=== PATIENT | male | born 1980 | race Caucasian/White ===

== ENCOUNTER → 2017-03-21 | Outpatient (CLI) | payer OTHER ==
[~2017-03-21] MED LIST: CEPH500C PO; IBUP-1050 PO
== END | disposition home or self-care (01) ==
LOC: C.PATHSPEC 18:00
PROVIDERS: ATTEND Urology
DX: Z30.2 Encounter for sterilization (principal)

== ENCOUNTER 2017-04-24 17:58 | Emergency (ER) | payer OTHER ==
[~2017-04-24] VITALS: Ht 185.4 cm; Wt 77.3 kg
[~2017-04-24 17:58] MED LIST changes: -CEPH500C PO
[2017-04-24 18:19] VITALS: TEMP 37.2; Ht 185.4 cm; Wt 77.3 kg
[2017-04-24] MEDS ORDERED: ACETAMINOPHEN 500 MG TAB PO STA (18:40)
[2017-04-24 19:05] LABS: URINE APPEARANCE CLEAR (CLEAR); URINE BILIRUBIN NEG (NEG); URINE COLOR YELLOW; URINE NITRITE NEG (NEG); URINE PH 6.5 (4.5-7.5); URINE SPECIFIC GRAVITY 1.027 (1.000-1.030); UROBILINOGEN NEG (NEG); ZZUR CULT IF INDIC CLEAN CATCH NO
[2017-04-24 19:09] LABS: MANUAL MICROSCOPIC REQUIRED? NO; REVIEW REQ? NO
--- NOTE | 2017-04-24 19:23 | DIAGNOSTIC IMAGING REPORT ---
(TESTICULAR) SCROTUM-CONT CLINICAL HISTORY: 36 years-old Male with Right testicular pain and edema. Vasectomy 03/21/17. Acute right-sided testicular pain and edema. History of recent vascectomy COMPARISON STUDY: CT abdomen and pelvis 06/21/2011 TECHNIQUE: Real-time, grayscale, and color Doppler sonography of the testes and scrotum is performed. Images are reviewed in the transverse and longitudinal planes. FINDINGS: RIGHT HEMISCROTUM: The right testis measures 4.2 x 2.4 x 3.2 cm and the parenchyma appears unremarkable. No intratesticular mass is seen. Normal-appearing arterial inflow is present within the right testicle. The right epididymal head appears heterogenous and hyperemic, 1.6 x 1.4 x 1.2 cm. There is a small complex right hydrocele. LEFT HEMISCROTUM: The left testis measures 5.7 x 2.3 x 3.3 cm and the parenchyma appears unremarkable. No intratesticular mass is seen. Normal-appearing arterial inflow is present within the left testicle. The left epididymal head appears normal measuring 1.0 x 0.8 x 1.2 cm. No varicocele or hydrocele is identified. IMPRESSION: 1. Right epididymitis with small complex right hydrocele suggesting a hematocele or pyocele. 2. Unremarkable sonographic appearance of the testicles without evidence of torsion or mass. The above report was generated using voice recognition software. It may contain grammatical, syntax or spelling errors. Electronically signed by: Aj Owen M.D. 04/24/2017 7:22 PM Dictated Date/Time: 04/24/2017 7:17 PM
[2017-04-24] MEDS ORDERED: CEPHALEXIN 500MG HOME PACK 1 EA BTL PO STA (20:15)
[2017-04-24] MEDS ORDERED: CEPH500C PO (20:27)
--- NOTE | 2017-04-24 20:29 | EMERGENCY ROOM VISIT NOTE ---
History First contact with patient: 18:31 Chief Complaint: TESTICULAR PAIN Stated Complaint: INFLAMMATION OF RT TESTICLE Nursing Triage Summary: Right sided testicle pain since Saturday evening. Patient states he had a vasectomy and on 03/21 and no problems since but today testicle is swollen and more painful. Patient states ice is not helping. History of Present Illness The patient is a 36 year old male who presents to the Emergency Room with complaints of "testicular pain". The patient states that he has had right- sided testicular swelling since Saturday. He had of a second-degree performed on March 21 with minimal complications. He states that since Saturday the discomfort has progressed to swelling, and now it is reddened. He denies any penile discharge or urinary symptoms. He denies any bleeding. He denies any fevers or chills. Review of Systems A complete 10-point Review of Systems was discussed with the patient, with pertinent positives and negatives listed in the History of Present Illness. All remaining Review of Systems questions can be considered negative unless otherwise specified. Past Medical/Surgical History Vasectomy Family History no pertinent. Social History Smoking Status: Never Smoker Occupation Status: employed Current/Historical Medications Scheduled Cephalexin Monohydrate (Keflex), 500 MG PO QID Physical Exam Vital Signs Date Time Temp Pulse Resp B/P (MAP) Pulse Ox O2 Delivery O2 Flow Rate FiO2 04/24/17 20:40 79 18 137/72 98 04/24/17 20:05 83 18 93/67 95 Room Air 04/24/17 18:19 37.2 90 20 129/71 99 Room Air Physical Exam VITAL SIGNS - Vital signs and nursing notes were reviewed. Stable. GENERAL -36-year-old male appearing his stated age who is in no acute distress. Communicates well with provider and answers questions appropriately. SKIN - Without rashes. right scrotal edema and erythema ABDOMEN - Abdominal contour normal without pulsations or visible masses. BS normoactive all four quadrants. No tenderness, palpable masses, hepatosplenomegaly, or ascites noted. : The right testicle is enlarged, erythematous and approximately 3 times the size of the left. There is epididymal tenderness. Medical Decision & Procedures ER Provider Diagnostic Interpretation: (TESTICULAR) SCROTUM-CONT CLINICAL HISTORY: 36 years-old Male with Right testicular pain and edema. Vasectomy 03/21/17. Acute right-sided testicular pain and edema. History of recent vascectomy COMPARISON STUDY: CT abdomen and pelvis 06/21/2011 TECHNIQUE: Real-time, grayscale, and color Doppler sonography of the testes and scrotum is performed. Images are reviewed in the transverse and longitudinal planes. FINDINGS: RIGHT HEMISCROTUM: The right testis measures 4.2 x 2.4 x 3.2 cm and the parenchyma appears unremarkable. No intratesticular mass is seen. Normal-appearing arterial inflow is present within the right testicle. The right epididymal head appears heterogenous and hyperemic, 1.6 x 1.4 x 1.2 cm. There is a small complex right hydrocele. LEFT HEMISCROTUM: The left testis measures 5.7 x 2.3 x 3.3 cm and the parenchyma appears unremarkable. No intratesticular mass is seen. Normal-appearing arterial inflow is present within the left testicle. The left epididymal head appears normal measuring 1.0 x 0.8 x 1.2 cm. No varicocele or hydrocele is identified. IMPRESSION: 1. Right epididymitis with small complex right hydrocele suggesting a hematocele or pyocele. 2. Unremarkable sonographic appearance of the testicles without evidence of torsion or mass. Laboratory Results Test 04/24/17 18:50 Urine Color YELLOW Urine Appearance CLEAR (CLEAR) Urine pH 6.5 (4.5-7.5) Urine Specific [place] 1.027 (1.000-1.030) Urine Protein NEG (NEG) Urine Glucose (UA) NEG (NEG) Urine Ketones TRACE (NEG) Urine Occult Blood NEG (NEG) Urine Nitrite NEG (NEG) Urine Bilirubin NEG (NEG) Urine Urobilinogen NEG (NEG) Urine Leukocyte Esterase NEG (NEG) Medications Administered Medications (Trade) Dose Ordered Sig/Yogesh Route Start Time Stop Time Status Last Admin Dose Admin Acetaminophen (Tylenol Tab) 500 mg NOW STAT PO 04/24/17 18:40 04/24/17 18:43 DC 04/24/17 18:53 500 MG Cephalexin Monohydrate (Keflex 500MG Home Pack) 1 homepack NOW STAT PO 04/24/17 20:15 04/24/17 20:16 DC 04/24/17 20:38 1 HOMEPACK Medical Decision Patient was seen and evaluated as above. After obtaining a thorough history and physical examination ultrasound was obtained as well as urinalysis. UA is negative. Ultrasound reveals epididymitis with small hydrocele. I discussed with the attending and subsequently Dr. Brewer at 8:15 PM. He is the on-call urologist. He recommended ice, jockstrap, Keflex and follow-up in the office with Dr. Teresa. This was to perform his vasectomy. The patient was educated upon management. Prescription for Keflex was written. Home pack was given. He was educated upon management, educated upon worrisome symptoms in which to return, had questions as per discharge, and was discharged home in good condition. In evaluation treatment this patient the following differential diagnoses were entertained: Epididymitis, orchitis, testicular torsion, among others. Impression Primary Impression: Epididymitis Departure Information Dispostion Home / Self-Care Condition GOOD Prescriptions Cephalexin Monohydrate (Keflex) 500 Mg Cap 500 MG PO QID for 9 Days, #36 CAP Prov: Moises Lemons PA-C 04/24/17 Referrals Roland Betancourt MD (PCP) oM Teresa MD Patient Instructions [facility] Additional Instructions You have been treated in the Emergency Department for epididymitis. You have been prescribed keflex to be taken every 6 hours for 10 days. This is an antibiotic. All antibiotics have the potential to cause diarrhea. Stop this medication and contact a medical provider if you were to develop any significant adverse side effects including: wheezing, shortness of breath, passing out, vomiting, or a diffuse rash. Always take antibiotics as directed and COMPLETE the ENTIRE course regardless of the improvement of your symptoms. Jock strap for support. Ice for swelling control. For pain control, you can use the following [id number] medicines: - Regular strength (325mg/tab) Tylenol (acetaminophen) 2 tabs every 4-6 hours as needed. Do not exceed 12 tablets in a 24 hour period. Avoid taking more than 3 grams (3000 mg) of Tylenol per day. This includes any other sources of acetaminophen you may take on a regular basis. - Regular strength (200 mg/tab) Advil (ibuprofen) 1-2 tabs every 4-6 hours as needed. Do not exceed a dose of 3200 mg per day. Return to the emergency department if your symptoms worsen despite treatment course outlined above. Drink plenty of water and stay well hydrated. You should follow-up with your urologist. Please call tomorrow if they do not return call. Return to the emergency department if your symptoms persist despite treatment plan outlined above or if the following symptoms occur: increased fevers, chills , low back pain, nausea/vomiting, or blood in your urine. (TESTICULAR) SCROTUM-CONT CLINICAL HISTORY: 36 years-old Male with Right testicular pain and edema. Vasectomy 03/21/17. Acute right-sided testicular pain and edema. History of recent vascectomy COMPARISON STUDY: CT abdomen and pelvis 06/21/2011 TECHNIQUE: Real-time, grayscale, and color Doppler sonography of the testes and scrotum is performed. Images are reviewed in the transverse and longitudinal planes. FINDINGS: RIGHT HEMISCROTUM: The right testis measures 4.2 x 2.4 x 3.2 cm and the parenchyma appears unremarkable. No intratesticular mass is seen. Normal-appearing arterial inflow is present within the right testicle. The right epididymal head appears heterogenous and hyperemic, 1.6 x 1.4 x 1.2 cm. There is a small complex right hydrocele. LEFT HEMISCROTUM: The left testis measures 5.7 x 2.3 x 3.3 cm and the parenchyma appears unremarkable. No intratesticular mass is seen. Normal-appearing arterial inflow is present within the left testicle. The left epididymal head appears normal measuring 1.0 x 0.8 x 1.2 cm. No varicocele or hydrocele is identified.
[2017-04-24 20:40] VITALS: BP 137/72; PULSE 79; O2SAT 98
== END 2017-04-24 20:40 | disposition home or self-care (01) ==
LOC: C.EDB 18:00 → C.EDD 20:40
DX: N45.1 Epididymitis (principal); N43.3 Hydrocele, unspecified; Z98.52 Vasectomy status; Z98.890 Other specified postprocedural states